=== PATIENT | male | born 1990 | race Two or more races ===

== ENCOUNTER 2017-05-11 21:48 | Emergency (ER) | payer OTHER ==
[~2017-05-11] VITALS: Ht 175.3 cm; Wt 72.6 kg
--- NOTE | 2017-05-11 21:55 | NUR ---
BIB FAMILY C/O ABD PAIN AND N/V SINCE 1AM THIS MORNING. PT STATES 15 EPISODES OF VOMITTING DARK IN COLOR "ALMOST LIKE COFFEE". RESP EVEN AND NONE LABORED. VSS. NO S/S OF ACUTE DISTRESS NOTED. PT GOWNED AND ON MONITOR WITH POX. SKIN PINK AND WARM. AAOX4. AWAITING MD KEANE.
[2017-05-11 22:53] LABS: APPEARANCE,URINE CLEAR (CLEAR); BILIRUBIN,URINE 1+ (NEGATIVE); BLOOD, URINE NEGATIVE Ery/uL (NEGATIVE); COLOR,URINE YELLOW (YELLOW); KETONES,URINE 3+ (NEGATIVE); LEUKOCYTE ESTERASE ,URINE NEGATIVE (NEGATIVE); NITRITE, URINE NEGATIVE (NEGATIVE); PROTEIN,URINE 1+ mg/dl (NEGATIVE); UGLUCOSE NEGATIVE (NEGATIVE); UROBILINOGEN,URINE 0.2 EU/dL (0.2)
[2017-05-11 22:58] LABS: BACTERIA,URINE None seen /HPF (None Seen); RBC,URINE NONE SEEN /HPF (0-2); SQUAMOUS EPITHELIAL CELL,UR Few /HPF (None Seen); WBC,URINE 0-2 /HPF (0-3)
[2017-05-11] MEDS ORDERED: IV NS 0.9% 1,000 ML BAG IV ONE (23:00)
[2017-05-11] MEDS ORDERED: ONDANSETRON HCL/PF 4 MG/2 ML VIAL IVP ONE (23:00)
[2017-05-11] MEDS ORDERED: FAMOTIDINE/PF INJ 20 MG/2 ML VIAL IV ONE ×2 (23:00→23:05)
[2017-05-11] MEDS ORDERED: ONDANSETRON HCL/PF 4 MG/2 ML VIAL ONE (23:04)
[2017-05-11 23:07] LABS: HEMATOCRIT 40 % (39-51); HEMOGLOBIN 12.8 g/dL (13.5-17.5); LYMPHOCYTES # (AUTO) 0.4 /CMM (0.8-4.8); LYMPHOCYTES % (AUTO) 3.9 % (20.0-44.0); MEAN CORPUSCULAR HEMOGLOBIN 19 PG (26.0-33.0); MEAN CORPUSCULAR HGB CONC 32 g/dl (31.0-36.0); MEAN CORPUSCULAR VOLUME 60 fL (80-96); MONOCYTES # (AUTO) 0.5 /CMM (0.1-1.30); MONOCYTES % (AUTO) 5.2 % (2.0-12.0); NEUTROPHILS # (AUTO) 9.2 /CMM (1.8-8.9); NEUTROPHILS % (AUTO) 90.9 % (43.0-81.0); PLATELET COUNT (AUTO) 246 /CMM (150-450); RDW COEFFICIENT OF VARIATION 16.5 (11.5-15.0); RED BLOOD CELL COUNT(AUTO) 6.66 MIL/uL (4.5-6.0); WHITE BLOOD COUNT (AUTO) 10.1 K/uL (4.3-11.0)
--- NOTE | 2017-05-11 23:15 | NUR ---
Patient is resting comfortably in bed with eyes open. VSS
[2017-05-11 23:16] LABS: CALCIUM, SERUM 9.4 mg/dL (8.5-10.1); CREATININE 1.1 mg/dL (0.6-1.3); POTASSIUM 3.8 mmol/L (3.5-5.1)
[2017-05-11 23:22] LABS: ALBUMIN 4.1 g/dL (3.4-5.0); BILIRUBIN,DIRECT 0.3 mg/dL (0.0-0.2); BILIRUBIN,TOTAL 1.6 mg/dL (0.2-1.0); TOTAL PROTEIN, SERUM 8.6 g/dL (6.4-8.2)
--- NOTE | 2017-05-11 23:30 | NUR ---
SAUSAGE TIER BEDSIDE FOR BLOOD DRAW
--- NOTE | 2017-05-12 00:53 | NUR ---
Patient is resting comfortably in bed with eyes closed. Easily aroused. VSS. FAMILY BEDSIDE
--- NOTE | 2017-05-12 01:02 | NUR ---
FITNESS TRAINER BEDSIDE
--- NOTE | 2017-05-12 02:35 | NUR ---
Patient discharged to home in stable condition. Written and verbal after care instructions given. Patient verbalizes understanding of instruction.IV removed. Catheter intact and site benign. Pressure and 4x4 applied to site. No bleeding noted. Pt ambulated with steady gait out of er. Pt was accompanied by family members.vss before discharge
[2017-05-12 02:46] VITALS: BP 112/65
[2017-05-13] MEDS ORDERED: ONDA4TAB5 PO (08:19)
[2017-05-13] MEDS ORDERED: FAMO40TA7 PO (08:19)
== END 2017-05-12 02:48 | disposition home or self-care (01) ==
LOC: ER 21:52
DX: K29.70 Gastritis, unspecified, without bleeding (principal); K80.20 Calculus of gallbladder without cholecystitis without obstruction; J45.909 Unspecified asthma, uncomplicated; F10.10 Alcohol abuse, uncomplicated; F17.200 Nicotine dependence, unspecified, uncomplicated
CPT/HCPCS: 36415; 76705-TC; 80048-TC; 80076-TC; 81000-TC; 83690-TC; 85025-TC; A4606; J2405; J3490; J7030; Z7610

== ENCOUNTER 2017-05-12 20:36 | Inpatient (IN) | payer MEDICAID, OTHER ==
[~2017-05-12] VITALS: Ht 175.3 cm; Wt 72.6 kg
--- NOTE | 2017-05-12 22:28 | NUR ---
LAB AT BEDSIDE FOR BLOOD DRAW.
[2017-05-12] MEDS ORDERED: ONDANSETRON 4 MG TAB.RAPDIS SL ONE (22:30)
[2017-05-12 23:01] LABS: BASOPHILS % (AUTO) 0.1 % (0.0-2.0); EOSINOPHILS % (AUTO) 0.6 % (0.0-6.0); HEMATOCRIT 41 % (39-51); HEMOGLOBIN 12.6 g/dL (13.5-17.5); LYMPHOCYTES # (AUTO) 0.8 /CMM (0.8-4.8); LYMPHOCYTES % (AUTO) 12.6 % (20.0-44.0); MEAN CORPUSCULAR HEMOGLOBIN 19 PG (26.0-33.0); MEAN CORPUSCULAR HGB CONC 31 g/dl (31.0-36.0); MEAN CORPUSCULAR VOLUME 61 fL (80-96); MONOCYTES # (AUTO) 0.6 /CMM (0.1-1.30); MONOCYTES % (AUTO) 8.9 % (2.0-12.0); NEUTROPHILS # (AUTO) 4.8 /CMM (1.8-8.9); NEUTROPHILS % (AUTO) 77.8 % (43.0-81.0); PLATELET COUNT (AUTO) 246 /CMM (150-450); RDW COEFFICIENT OF VARIATION 16.2 (11.5-15.0); RED BLOOD CELL COUNT(AUTO) 6.63 MIL/uL (4.5-6.0); WHITE BLOOD COUNT (AUTO) 6.2 K/uL (4.3-11.0)
[2017-05-12] MEDS ORDERED: ONDANSETRON 4 MG TAB.RAPDIS ONE (23:08)
[2017-05-12 23:12] LABS: CALCIUM, SERUM 9.8 mg/dL (8.5-10.1); CREATININE 1.1 mg/dL (0.6-1.3); POTASSIUM 4.4 mmol/L (3.5-5.1)
[2017-05-12 23:22] LABS: ALBUMIN 4.3 g/dL (3.4-5.0); BILIRUBIN,DIRECT 0.4 mg/dL (0.0-0.2); BILIRUBIN,TOTAL 2.3 mg/dL (0.2-1.0); TOTAL PROTEIN, SERUM 8.7 g/dL (6.4-8.2)
--- NOTE | 2017-05-12 23:29 | NUR ---
PT TRANSFERRED TO ER BED 3 FROM CHAIR 1
[2017-05-12] MEDS ORDERED: IV NS 0.9% 1,000 ML BAG IV ONE ×2 (23:30)
--- NOTE | 2017-05-12 23:42 | NUR ---
26 Y/O MALE PLACED IN BED 3 C/O N/V FOR THREE DAYS.
[2017-05-13 00:37] LABS: BAND % (MANUAL) 2 % (0.0-5.0); LYMPHOCYTES % (MANUAL) 15 % (16-48); MONOCYTES % (MANUAL) 8 % (0-11.0); NEUTROPHILS % (MANUAL) 75 (42-76)
[2017-05-13] MEDS ORDERED: ONDANSETRON HCL/PF 4 MG/2 ML VIAL IVP ONE (01:30)
[2017-05-13] MEDS ORDERED: MORPHINE SULFATE INJ 2 MG/ML DISP.SYRIN IV ONE (01:30)
[2017-05-13] MEDS ORDERED: MORPHINE SULFATE INJ 4 MG/ML DISP.SYRIN ONE (01:42)
[2017-05-13] MEDS ORDERED: ONDANSETRON HCL/PF 4 MG/2 ML VIAL ONE (01:42)
--- NOTE | 2017-05-13 01:43 | NUR ---
CALLED [facility] FOR A PANEL CALL
--- NOTE | 2017-05-13 01:48 | NUR ---
MD JOHN CALLED AND IS ON THE PHONE WITH JOE SHI AT THIS TIME
[2017-05-13] MEDS ORDERED: ONDANSETRON HCL/PF 4 MG/2 ML VIAL IVP PRN (02:00)
[2017-05-13] MEDS ORDERED: ACETAMINOPHEN 650 MG/SUPP.RECT RC PRN ×2 (02:00→02:45)
[2017-05-13] MEDS ORDERED: IV D5/0.45 NACL 1,000 ML IV PRN (02:00)
[2017-05-13] MEDS ORDERED: MORPHINE SULFATE INJ 2 MG/ML DISP.SYRIN IV PRN (02:00)
--- NOTE | 2017-05-13 02:00 | NUR ---
DX- SBO. PT MEDICATED FOR DISCOMFORT. NG TUBE PLACED AND ATTACHED TO LOW WALL SUCTION.
--- NOTE | 2017-05-13 02:11 | NUR ---
207-2 [facility]
--- NOTE | 2017-05-13 02:32 | NUR ---
REPOR GIVEN TO [facility]. PT READY TO BE TRANSFERRED TO MS.
[2017-05-13 02:40] VITALS: BP 129/80
[2017-05-13 03:41] VITALS: BP 129/80
--- NOTE | 2017-05-13 04:13 | NUR ---
ADMITTED THIS 26 YEARS OLD MALE FROM E.R FOR NAUSEA VOMITING FOR 3 DAYS PATIENT IS ALERT X 4 AMBULATORY SELF CARE NG- TUBE ON LOW WALL SUCTION PATIENT TOLERATED WELL NO DRAINAGE AT THIS TIME PATIENT DENIES ANY PAIN OR DISCOMFORT AT THIS TIME VITAL SIGN STABLE ON ROOM AIR BREATHING EVEN UNLABORED WILL CONTINUES TO MONITOR THE PATIENT FOR SAFETY AND FALL.
--- NOTE | 2017-05-13 07:30 | NUR ---
MS/RN Patient received Patient received from production supervisor off shift. A/O X4, NGT to LIS, no output at this time. IV fluids infusing at 90ml/hr via right AC, no signs of infiltration seen. Bed in low setting, side rails X2 in upright position, call light within reach, patient aware of how to call for help and operate bed. Will continue to monitor and ensure safety.
[2017-05-13] MEDS: ONDANSETRON HCL/PF 4 MG/2 ML VIAL IVP PRN ×4 (07:56→21:22)
[2017-05-13] MEDS: HYDROMORPHONE INJ 0.5 MG/0.5 ML SYRINGE IV PRN ×2 (07:57→16:10)
[2017-05-13 08:00] VITALS: BP 138/86
--- NOTE | 2017-05-13 08:00 | NUR ---
MS/RN Pain Complaining of abdominal pain 8/10 and nausea. Dilaudid and zofran administered as ordered, will monitor effectiveness.
[2017-05-13] MEDS ORDERED: FAMO40TA7 PO (08:19)
[2017-05-13] MEDS ORDERED: ONDA4TAB5 PO (08:19)
[2017-05-13] MEDS: FAMOTIDINE/PF INJ 20 MG/2 ML VIAL IV SCH ×2 (08:34→21:22)
[2017-05-13] MEDS ORDERED: FAMOTIDINE/PF INJ 20 MG/2 ML VIAL IV SCH (09:00)
--- NOTE | 2017-05-13 09:00 | NUR ---
MS/installer interior assemblies Pepcid administered as ordered, with good effect.
--- NOTE | 2017-05-13 09:20 | NUR ---
MS/licensed psychologist director Call received from radiology, patient has order from ER for upper GI series with gastrografin to rule out obstruction. Per tech, order was entered incorrectly, should of been for SBFT. Order changed.
--- NOTE | 2017-05-13 10:00 | NUR ---
MS/RN SBFT Patient taken to radiology for SBFT.
[2017-05-13] MEDS ORDERED: DIATR MEGLU/DIATRIZOATE SODIUM 120 ML BOTTLE (GASTROGRAPHIN) ONE (10:02)
--- NOTE | 2017-05-13 12:19 | NUR ---
MS/president and chief executive officer change Patient back from radiology following first part of SBFT test. Vomited X1, Walter Gamal informed. Zofran changed to 4mg every 4 hours prn.
[2017-05-13 16:00] VITALS: BP 134/80
--- NOTE | 2017-05-13 16:00 | NUR ---
MS/RN Medications Dilaudid and zofran administered per patient request for pain scal 7/10 and nausea. Will monitor effectiveness.
--- NOTE | 2017-05-13 18:33 | NUR ---
MS/RN End note Films taken at 1800 as part of small bowel follow through, per tech, patient needs to remain NPO and NGT should not be reconnected to suction unless for emergency situation. Contrast is taking longer than usual to reach small bowel and complete study. New family members at bedside and requesting to speak with Dr Grant. Dr Grant's office called and informed, Walter Yeung also made aware. Stated that he had also placed a call to Dr Grant via his cell phone and was also awaiting call back. Patient and family aware that Dr Grant was possibly not going to come in this evening unless final results of SBFT were available. Will endorse to steward/stewardess night to follow up Dr Bradford
--- NOTE | 2017-05-13 19:30 | NUR ---
RN NOTE; RECEIVED PT IN BED AWAKE AND ALERT. FAMILY A THE BED SIDE. BREATHING EVENLY. NO SOB. NAD . W/ ONGOING ABD PAIN AND NAUSEA. NO VOMITING AT THIS TIME. NG IN PLACE. CLAMPED. NOT CONNECTED TO THE SUCTIONING PER RADIOLOGIST ORDER. AWAITING FOR SBFT RESULT AND RADIOLOGY AND DR. JOHN'S DECISION. CALL LIGHT WITHIN REACH. WILL CONT TO MONITOR,
[2017-05-13 20:00] VITALS: BP 136/87
[2017-05-13 20:23] VITALS: BP 136/87
--- NOTE | 2017-05-13 21:22 | NUR ---
ZOFRAN GIVEN PER PT'S REQUEST FOR NAUSEA.
--- NOTE | 2017-05-13 22:00 | NUR ---
PT AND FAMILY IS REQUESTING SHOWER FOR THE PT. PLACED A CALL TO [employer] WELLNESS TRAINER AND SPOKE TO DANIEL . OBTAINED AN ORDER FOR OK TO SHOWER.
--- NOTE | 2017-05-14 | NUR ---
RADIOLOGY TECHS AT THE BED SIDE FOR KUB.
[2017-05-14] MEDS: ONDANSETRON HCL/PF 4 MG/2 ML VIAL IVP PRN ×2 (02:15→13:11)
[2017-05-14] MEDS: HYDROMORPHONE INJ 0.5 MG/0.5 ML SYRINGE IV PRN ×2 (02:15→09:09)
--- NOTE | 2017-05-14 02:15 | NUR ---
ZOFRAN AND DILAUDID GIVEN ORDERED PER PT'S REQUEST FOR C/O NAUSEA AND SEVERE ABD. PAIN. WILL CONT TO MONITOR ,
--- NOTE | 2017-05-14 04:17 | NUR ---
NEW IV LINE INSERTED ON L HAND. 22G. GOOD BLOOD RETURN
[2017-05-14] MEDS: IV D5/0.45 NACL 1,000 ML IV PRN ×2 (05:59→11:07)
--- NOTE | 2017-05-14 06:14 | NUR ---
[facility] AT THE BED SIDE FOR KUB. PT IN STABLE CONDITION.
--- NOTE | 2017-05-14 06:33 | NUR ---
PT IN BED DOZING INTERMITTENTLY. REMAINED STABLE. PAIN TOLERATED WELL. NO C/O N/V AT THIS TIME. KUB DONE. AWAITING FOR THE RESULTS. NPO W/ ONGOING IVF . NEEDS ATTENDED .ASSISTED W/ ADLS. CALL LIGHT WITHIN REACH. WILL CONT TO MONITOR AND WILL ENDORSE TO AM SHIFT FOR ANABELL.
[2017-05-14 08:00] VITALS: BP 140/88
[2017-05-14 09:02] LABS: BASOPHILS % (AUTO) 0.1 % (0.0-2.0); EOSINOPHILS % (AUTO) 0.8 % (0.0-6.0); HEMATOCRIT 36 % (39-51); HEMOGLOBIN 11.5 g/dL (13.5-17.5); LYMPHOCYTES # (AUTO) 0.9 /CMM (0.8-4.8); LYMPHOCYTES % (AUTO) 13.4 % (20.0-44.0); MEAN CORPUSCULAR HEMOGLOBIN 19 PG (26.0-33.0); MEAN CORPUSCULAR HGB CONC 32 g/dl (31.0-36.0); MEAN CORPUSCULAR VOLUME 60 fL (80-96); MONOCYTES # (AUTO) 1.3 /CMM (0.1-1.30); MONOCYTES % (AUTO) 20.7 % (2.0-12.0); NEUTROPHILS # (AUTO) 4.2 /CMM (1.8-8.9); PLATELET COUNT (AUTO) 245 /CMM (150-450); RDW COEFFICIENT OF VARIATION 15.8 (11.5-15.0); RED BLOOD CELL COUNT(AUTO) 5.97 MIL/uL (4.5-6.0); WHITE BLOOD COUNT (AUTO) 6.4 K/uL (4.3-11.0)
[2017-05-14] MEDS: FAMOTIDINE/PF INJ 20 MG/2 ML VIAL IV SCH ×2 (09:08→21:40)
[2017-05-14 09:21] LABS: BAND % (MANUAL) 3 % (0.0-5.0); LYMPHOCYTES % (MANUAL) 19 % (16-48); MONOCYTES % (MANUAL) 17 % (0-11.0); NEUTROPHILS % (MANUAL) 61 (42-76)
[2017-05-14 09:49] LABS: ALBUMIN 3.5 g/dL (3.4-5.0); BILIRUBIN,DIRECT 0.4 mg/dL (0.0-0.2); BILIRUBIN,TOTAL 2.3 mg/dL (0.2-1.0); CALCIUM, SERUM 8.8 mg/dL (8.5-10.1); CREATININE 0.9 mg/dL (0.6-1.3); POTASSIUM 3.4 mmol/L (3.5-5.1); TOTAL PROTEIN, SERUM 7.3 g/dL (6.4-8.2)
--- NOTE | 2017-05-14 10:55 | NUR ---
MS RN NOTES DR. JOHN CALLED IN REGARDS TO CONSULTATION. PER DR. JOHN, HE WILL COME IN AROUND 2PM TODAY TO SEE THE PT AND HE ALSO GAVE A VERBAL ORDER FOR STAT SMALL BOWEL FOLLOW THROUGH AND STAT KUB. WILL INPUT ORDERS. DR. FUENTES MADE AWARE OF THIS WELL.
[2017-05-14] MEDS ORDERED: POTASSIUM CHLORIDE 10 MEQ/50 ML PREMIXED IVPB FOR PERIPHERAL LINE IV ONE (11:30)
[2017-05-14] MEDS: POTASSIUM CL. PREMIX PERIPHER. 50 ML IV SCH ×4 (13:00→15:00)
--- NOTE | 2017-05-14 14:31 | NUR ---
MS RN NOTES PT TAKEN TO OR IN STABLE CONDITION.
[2017-05-14 14:41] LABS: INR 1.03 (0.87-1.13)
[2017-05-14] MEDS ORDERED: BUPIVACAINE 0.5 % PF 150 MG/30 ML VIAL ONE (14:47)
[2017-05-14] MEDS ORDERED: ENOXAPARIN SODIUM 40 MG/0.4 ML DISP.SYRIN SQ SCH (15:00)
[2017-05-14] MEDS ORDERED: FENTANYL PF 100MCG/2ML AMPUL ONE (15:19)
[2017-05-14] MEDS ORDERED: ROCURONIUM BROMIDE 50 MG/5 ML ONE (15:19)
[2017-05-14] MEDS ORDERED: SUCCINYLCHOLINE CHLORIDE 20 MG/ML VIAL ONE (15:19)
[2017-05-14] MEDS ORDERED: ETOMIDATE 2 MG/ML VIAL ONE (15:45)
[2017-05-14] MEDS ORDERED: METRONIDAZOLE 500MG/ NS 100ML 100 ML IV ONE (15:59)
[2017-05-14 16:30] VITALS: BP 124/78
[2017-05-14] MEDS ORDERED: ANESTHESIA TRAY IN PYXIS 1 EA TRAY MC ONE (16:37)
--- NOTE | 2017-05-14 18:05 | NUR ---
SPOKE WITH DR WILSON REGARDING THE 3 BAGS OF POTASSIUM THAT DIDN'T GET ADMINISTERED DUE TO PATIENT RUSHING TO AN EMERGENCY SURGERY AND NEW FLUID WITH [address] WILSON, DO NOT ADMINISTER THE 3 BAGS
--- NOTE | 2017-05-14 19:30 | NUR ---
MS JENNI OPENING NOTES RECEIVED PT FROM ER NURSE IN STABLE CONDITION. PT IS A/O X3. HE DENIES PAIN AT THIS TIME. NG TUBE NOTED NOT CONNECTED TO SUCTION AT THIS TIME. NPO STATUS MAINTAINED. PT DENIES ANY N/V. IV NOTED TO BE PATENT AND INTACT. NO REDNESS OR SIGNS OF INFILTRATION NOTED. PT AWAITING TO BE CONSULTED BY DR. JOHN. SAFETY MEASURES REMAIN IN PLACE. WILL CONTINUE TO MONITOR. Addendum: 05/14/17 at 1938 by TOMEKA PEREZ RN NOTE INTENDED FOR 0740
--- NOTE | 2017-05-14 19:34 | NUR ---
MS RN CLOSING NOTES PT REMAINS IN STABLE CONDITION AFTER OR PROCEDURES. ORDERS NOTED BY MD. HE CONTINUE TO DENY ANY PAIN AT THIS TIME. NG TUBE CONNECTED TO LOW INTERMITTENT SUCTION. GASTRIC CONTENTS NOTED TO BE DRAINING. VITAL SIGNS REMAIN STABLE. ALL NEEDS MET DURING SHIFT AND ORDERS CARRIED OUT ACCORDINGLY. ALL DUE MEDS GIVEN. WILL ENDORSE TO NIGHTSHIFT NURSE FOR ANABELL
[2017-05-14 20:00] VITALS: BP 116/71
--- NOTE | 2017-05-14 20:00 | NUR ---
RN INITIAL NOTES: RECEIVED REPORT FROM AFSATU RN, PT IS A/O X4, RESPIRATION EVEN AND UNLABORED, ON RA, PT DENIES ANY PAIN OR DISCOMFORT AT THIS TIME, NGTUBE TO LEFT NARE CONNECTED TO LOW INTERMITTENT SUCTION, WITH GREENISH COLORED DRAINAGE. S/P LAPAROSCOPIC SMALL BOWEL RESECTION 05/14/[address] JOHN[address] ABDOMEN SOFT TO TOUCH WITH HYPOACTIVE BOWEL SOUND NOTED, PT DENIES ANY PAIN UPON PALPATION OF THE ABDOMEN. ASSESSING PLACEMENT OF NGTUBE BY INJECTING AIR AND AUSCULTATION, FLUSHED TUBE WITH 30CC OF WATER WITH EASE AND NO RESISTANCE NOTED. LEFT HAND IV ACCESS PATENT AND FLUSHING WELL. RIGHT AC IV ACCESS REMOVED IT WAS OUT AND APPLIED PRESSURED DRESSING. SAFETY PRECAUTIONS FOR FALL INITIATED CALL LIGHT IN REACH WILL CONTINUE TO MONITOR
[2017-05-14] MEDS: IV D5/0.45 NACL W/20 MEQ KCL 1L IV PRN ×2 (20:42)
[2017-05-14] MEDS: CEFAZOLIN SODIUM 1 GM in IV SODIUM CHLORIDE 0.9% 50 ML IV SCH (20:43)
[2017-05-14] MEDS: METRONIDAZOLE 500MG/ NS 100ML 500 MG in PREMIX 1 EA IV SCH (21:40)
--- NOTE | 2017-05-14 23:00 | NUR ---
RN NOTES: ASSISTED PT TO THE RESTROOM, DISCONNECTED PT TO NGTUBE, AFTER USING THE RESTROOM, AND CONNECTED BACK TO THE TUBE, NOTED THAT SOME GREENISH DRAINAGE ONLY STUCK IN THE NG-TUBING AND DOESNT FLOW DIRECTLY TO THE SUCTION TUBING CONNECTED TO THE WALL, TRIED TROUBLE SHOOTING SUCH CHANGING THE SUCTION CONTAINER, CHANGING/USING DIFFERENT SUCTION OUTLET, INJECTING 60CC OF AIR TO CHECK FOR PLACEMENT, GURGLING SOUND HEARD, AUSCULTATION PERFORMED, FLUSHING TUBE WITH 30CC OF WATER PERFORMED AND FLUSHED WITH EASE AND NO RESISTANCE NOTED, CALLING RT TO HEP FIX THE SUCTION OUTLET. RT CAME, BUT PROBLEM WASNT FIX, IT'S SUCTIONING, HOWEVER DRAINAGE JUST STAY WITHIN THE NG-TUBING. PT DENIES ANY PAIN OR DISCOMFORT, HE ALSO DENIES ANY DIZZINESS OR NAUSEA OR VOMITING. WILL CALL TERRAZZO FINISHER GELY CINTRON
--- NOTE | 2017-05-14 23:40 | NUR ---
RN NOTES: TALKED TO DR TREVIZO , RELAYED ABOUT WHAT HAPPENED, PER MD TO OBSERVE FOR NOW, HE EXPLAINED THAT WHEN THE PT GET UP AND WALKED TO THE BATHROOM THEN WENT BACK TO BED, THERE'S A TENDENCY THAT THERE'S NO MORE TO SUCTION, AND IF THE NGTUBE WAS CLOGGED OR NOT IN PLACE, PT WILL FEEL DISCOMFORT SUCH NAUSEA OR VOMITING, AND IF THAT HAPPENS THEN WILL PUT A NEW NGTUBE , BUT FOR THE MEAN TIME HE STATED TO KEEP MONITORING, AND OKAY FOR CHEST XRAY IF NEEDED
--- NOTE | 2017-05-15 01:00 | NUR ---
RN NOTES: NOTED PT'S NGTUBE TO LOW INTERMITTENT SUCTION NOW HAVE DRAINAGE, GREENISH DRAINAGE IN THE COLLECTION CHAMBER. PT CURRENTLY ASLEEP
[2017-05-15] MEDS: CEFAZOLIN SODIUM 1 GM in IV SODIUM CHLORIDE 0.9% 50 ML IV SCH ×2 (04:22→14:26)
[2017-05-15] MEDS: METRONIDAZOLE 500MG/ NS 100ML 500 MG in PREMIX 1 EA IV SCH ×2 (05:05→13:07)
[2017-05-15] MEDS: IV D5/0.45 NACL W/20 MEQ KCL 1L IV PRN ×2 (05:06)
--- NOTE | 2017-05-15 06:58 | NUR ---
rn closing notes: pt in bed, denies any pain or discomfort throughout the shift. pt still connected to ngtube to low intermittent suction, current chamber has greenish to brownish drainage about 100ml. pt denies any nausea or vomiting. laparoscopic incision with dressing remains c/d/i, dressing remains with dry old blood. pt voided freely via urinal. left hand iv access remains patent and flushing well, infusing with ns + 20meq kcl at 150ml/hr. pt still not passing gas.abdomen soft and non tender. no abdominal distention noted. hypoactive bowel sound noted. vs remains stable, needs attended. remains npo, for kub today in am. safety precautions for fall remains engaged, call light in reach. Will endorse to day rn for ander.
--- NOTE | 2017-05-15 07:34 | NUR ---
MS RN OPENING NOTES PATIENT RECEIVED ASLEEP IN BED, AWAKENS EASILY. ALERT, ORIENTED X4 AND VERBALLY RESPONSIVE, DENIES PAIN OR DISCOMFORTS AT THIS TIME. ON ROOM AIR, BREATHING EVEN AND UNLABORED. MAINTAIN ON NPO, KUB WILL BE DONE TODAY. NG-TUBE ON LEFT NARE IN PLACE AND INTERMITTENTLY DRAINING BROWNISH BLACK COLORED DRAINAGE TO COLLECTING CANISTER. IV ACCESS ON LEFT HAND G#22 INFUSING NS + 20MEQ KCL @ 150ML/HR, NO SIGNS OF INFILTRATIONS NOTED. BED IN LOW/LOCKED POSITION, SIDE RAILS UP X2 AND CALL LIGHT WITHIN REACH. WILL CONTINUE TO MONITOR.
[2017-05-15 07:54] LABS: BASOPHILS % (AUTO) 0.2 % (0.0-2.0); EOSINOPHILS # (AUTO) 0.1 /CMM (0.0-0.7); EOSINOPHILS % (AUTO) 2.1 % (0.0-6.0); HEMATOCRIT 30 % (39-51); HEMOGLOBIN 9.7 g/dL (13.5-17.5); LYMPHOCYTES # (AUTO) 1.4 /CMM (0.8-4.8); LYMPHOCYTES % (AUTO) 22.6 % (20.0-44.0); MEAN CORPUSCULAR HEMOGLOBIN 20 PG (26.0-33.0); MEAN CORPUSCULAR HGB CONC 32 g/dl (31.0-36.0); MEAN CORPUSCULAR VOLUME 61 fL (80-96); MONOCYTES % (AUTO) 16.4 % (2.0-12.0); NEUTROPHILS # (AUTO) 3.6 /CMM (1.8-8.9); NEUTROPHILS % (AUTO) 58.7 % (43.0-81.0); PLATELET COUNT (AUTO) 200 /CMM (150-450); RDW COEFFICIENT OF VARIATION 15.8 (11.5-15.0); RED BLOOD CELL COUNT(AUTO) 4.97 MIL/uL (4.5-6.0); WHITE BLOOD COUNT (AUTO) 6.2 K/uL (4.3-11.0)
[2017-05-15 08:00] VITALS: BP 120/77
[2017-05-15 08:14] LABS: CALCIUM, SERUM 7.9 mg/dL (8.5-10.1); POTASSIUM 3.3 mmol/L (3.5-5.1)
[2017-05-15] MEDS: FAMOTIDINE/PF INJ 20 MG/2 ML VIAL IV SCH ×2 (09:09→20:07)
[2017-05-15 09:16] LABS: BAND % (MANUAL) 3 % (0.0-5.0); EOSINOPHILS % (MANUAL) 1 % (0-4); LYMPHOCYTES % (MANUAL) 27 % (16-48); MONOCYTES % (MANUAL) 11 % (0-11.0); NEUTROPHILS % (MANUAL) 58 (42-76)
[2017-05-15] MEDS: POTASSIUM CL. PREMIX PERIPHER. 50 ML IV SCH ×3 (10:00→11:36)
--- NOTE | 2017-05-15 11:20 | NUR ---
RN NOTES PT IS PASSING GAS AND WENT TO TOILET AND HAD BOWEL MOVEMENT X1. INFORMED DR WILSON WITH ORDER TO CALL DR JOHN ABOUT PT'S HAVING BOWEL MOVEMENT. CALLED DR JOHN WITH ORDER TO TO REMOVE NGTUBE AND START PT ON CLEAR LIQUID DIET. WILL CONTINUE TO MONITOR.
--- NOTE | 2017-05-15 11:38 | NUR ---
RN NOTES PATIENT WITH LOW LEVEL OF K 3.3, DR WILSON ON UNIT WITH ORDER TO CHANGED D5 1/2 NS +20MEQ KCL @ 150ML/HR TO 40 MEQ MCL @ 150ML/HR. WILL CONTINUE TO MONITOR
[2017-05-15] MEDS: Potassium Chloride 40 MEQ in IV D5/0.45 NACL 1,000 ML IV PRN ×2 (12:44→23:49)
[2017-05-15] MEDS: ENOXAPARIN SODIUM 40 MG/0.4 ML DISP.SYRIN SQ SCH (15:41)
[2017-05-15 16:00] VITALS: BP 115/73
--- NOTE | 2017-05-15 18:52 | NUR ---
MS RN CLOSING NOTES PATIENT AWAKE AND RESTING IN BED WITH FAMILY AT BEDSIDE. A/O X4, SAME ABLE TO MAKE NEEDS KNOWN. ALL NEEDS AND CARE PROVIDED WELL. ON ROOM AIR, BREATHING EVEN AND UNLABORED. IV ACCESS ON LEFT HAND G#22 INFUSING NS + 40MEQ KCL @ 150ML/HR, NO SIGNS OF INFILTRATIONS NOTED. KEPT HOB ELEVATED. BED IN LOW/LOCKED POSITION WITH SIDE RAILS UP X2. CALL LIGHT AND BEDSIDE TABLE PLACED WITHIN EASY REACH OF PT. ALL SAFETY MEASURES MAINTAINED. WILL ENDORSED TO YARN HANDLER NURSE FOR ANABELL..
--- NOTE | 2017-05-15 19:30 | NUR ---
RN NOTES RECEIVED PATIENT IN BED AWAKE, OA X 3, ABLE TO MAKE NEEDS KNOWN. NO ACUTE DISTRESS NOTED. DENIES ANY PAIN AT THIS TIME. IV SITE PATENT, INTACT; IVF INFUSING ORDERED. ABDOMINAL INCISION DRESSING INTACT; BOWEL SOUNDS PRESENT. SAFETY REMINDERS GIVEN. ON LOW BED WITH BILATERAL UPPER SIDE RAILS UP. CALL VILLALBA WITHIN EASY REACH. WILL CONTINUE TO MONITOR.
[2017-05-15 20:00] VITALS: BP 113/72
--- NOTE | 2017-05-16 01:10 | NUR ---
RN NOTES NOTED AND CARRIED OUT NEW ORDER FROM DR. TREVIZO FOR CMP IN AM.
--- NOTE | 2017-05-16 06:30 | NUR ---
RN NOTES PATIENT ASLEEP, EASILY AROUSABLE. RESPIRATIONS EVEN. NO SIGNS OF PAIN AT THIS TIME. DUE MEDS GIVEN WITH NO ASE NOTED. NEEDS ATTENDED. SAFETY PRECAUTIONS AND COMFORT MEASURES IN PLACE. WILL GIVE REPORT TO DAY SHIFT FOR CONTINUITY OF CARE.
[2017-05-16 07:00] LABS: BILIRUBIN,TOTAL 1.4 mg/dL (0.2-1.0); CALCIUM, SERUM 8.5 mg/dL (8.5-10.1); POTASSIUM 4.1 mmol/L (3.5-5.1); TOTAL PROTEIN, SERUM 6.5 g/dL (6.4-8.2)
[2017-05-16] MEDS: Potassium Chloride 40 MEQ in IV D5/0.45 NACL 1,000 ML IV PRN (07:12)
--- NOTE | 2017-05-16 07:26 | NUR ---
MS RN OPENING NOTES PATIENT RECEIVED AWAKE IN BED IN NO ACUTE SIGNS OF DISTRESS. HOB ELEVATED. A/O X4. VERBALLY RESPONSIVE, DENIES PAIN OR DISCOMFORTS AT THIS TIME. ON ROOM AIR, BREATHING EVEN AND UNLABORED. PT NOTED WITH BLOOD SHOT ON LEFT INNER SIDE OF THE EYE WITH NO C/O PAIN OR BLURRY VISION. IV ACCESS ON LEFT HAND G#22 INFUSING NS + 40MEQ KCL @ 150ML/HR, NO SIGNS OF INFILTRATIONS NOTED. BED IN LOW/LOCKED POSITION, SIDE RAILS UP X2 AND CALL LIGHT WITHIN REACH. WILL CONTINUE TO MONITOR.
[2017-05-16 08:00] VITALS: BP 108/73
[2017-05-16] MEDS: FAMOTIDINE/PF INJ 20 MG/2 ML VIAL IV SCH ×2 (08:25→20:32)
--- NOTE | 2017-05-16 11:26 | NUR ---
RN NOTES PT SEEN AND EVALUATED BY DR JOHN WITH ORDER TO START PT ON REGULAR DIET TOLERATED, SAME CLEARED FOR DISCHARGED. WILL CONTINUE TO MONITOR.
[2017-05-16 16:00] VITALS: BP 116/76
--- NOTE | 2017-05-16 18:45 | NUR ---
MS RN CLOSING NOTES PATIENT AWAKE AND RESTING AT MODERATE HIGH BACKREST IN BED AT THIS TIME WITH FAMILY @ BEDSIDE. A/O X4. ABLE TO COMMUNICATE VERBALLY. PT TOLERATED REGULAR DIET TODAY WITH NO C/O ABDOMINAL PAIN, N & V. ON ROOM AIR, BREATHING EVEN AND UNLABORED. IV ACCESS ON LEFT HAND G#22 INFUSING D 5 1/2 NS + 40MEQ KCL @ 150ML/HR, NO SIGNS OF INFILTRATIONS NOTED. KEPT BED IN LOW/LOCKED POSITION WITH SIDE RAILS UP X2. CALL LIGHT AND BEDSIDE TABLE PLACED WITHIN EASY REACH OF PT. ALL NEEDS AND CARE ATTENDED WELL. WILL ENDORSED TO MULTI NEEDLE MACHINE OPERATOR NURSE FOR ANABELL..
--- NOTE | 2017-05-16 19:30 | NUR ---
RN NOTES RECEIVED PATIENT IN BED AWAKE, AO X 3, ABLE TO MAKE NEEDS KNOWN. NO ACUTE DISTRESS NOTED. DENIES ANY PAIN AT THIS TIME. IV SITE PATENT, INTACT; IVF INFUSING ORDERED. ABDOMINAL INCISION DRESSING INTACT; BOWEL SOUNDS PRESENT. SAFETY REMINDERS GIVEN. ON LOW BED WITH BILATERAL UPPER SIDE RAILS UP. CALL VILLALBA WITHIN EASY REACH. WILL CONTINUE TO MONITOR.
[2017-05-16 20:00] VITALS: BP 104/67
[2017-05-16] MEDS: ENOXAPARIN SODIUM 40 MG/0.4 ML DISP.SYRIN SQ SCH (20:33)
--- NOTE | 2017-05-17 07:49 | NUR ---
MS/RN Patient received Patient received from film processing shift supervisor. A/O X4, vital signs stable. Abdominal incisions clean and dry. Denies pain. Call light within reach, will continue to monitor and ensure safety.
[2017-05-17 08:00] VITALS: BP 120/77
[2017-05-17] MEDS: FAMOTIDINE/PF INJ 20 MG/2 ML VIAL IV SCH (08:26)
--- NOTE | 2017-05-17 09:00 | NUR ---
MS/RN Medications Morning medications administered as ordered.
--- NOTE | 2017-05-17 10:15 | NUR ---
MS/RN S/B Dr Bae Seen by Dr Bae - patient to be discharged to home later today. Will requie prescriptions and sick note for school.
--- NOTE | 2017-05-17 13:20 | NUR ---
MS/sales representative paperwork Discharge paperwork prepared, heplock removed, awaiting final discharge order. Family at bedside, will provide transport home.
--- NOTE | 2017-05-17 15:00 | NUR ---
MS/manager card Patient discharged to home in stable condition. Paperwork signed, copy made and placed in chart. Education provided to patient, including signs and symptoms of infection ie temperature, increase in pain and swelling around incision sites. Heplock and name bands removed. All personal belongings accounted for on belongings list. Escorted to main lobby, parents providing transport home.
== END 2017-05-17 15:15 | disposition home or self-care (01) | DRG 224 ==
LOC: ER 20:38 → MEDSG2 05-13 02:43
PROVIDERS: ADMIT Internal Medicine; ATTEND Nurse Practitioner Acute Care
PROC: 0DNB0ZZ Release Ileum, Open Approach (ICD-10-PCS; principal; 2017-05-14 16:01)
DX: K56.50 Intestinal adhesions [bands], unspecified as to partial versus complete obstruction (principal); E86.0 Dehydration; D50.9 Iron deficiency anemia, unspecified; F17.200 Nicotine dependence, unspecified, uncomplicated; E87.6 Hypokalemia; E80.6 Other disorders of bilirubin metabolism; J45.909 Unspecified asthma, uncomplicated; K80.20 Calculus of gallbladder without cholecystitis without obstruction; Q43.0 Meckel's diverticulum (displaced) (hypertrophic)
CPT/HCPCS: 36415; 74018; 74250-TC; 80048-TC; 80053-TC; 80076-TC; 83690-TC; 85025-TC; 85730-TC; 86850-TC; 87081-TC; A4216; A4606; J0330; J0690; J1650; J2270; J2405; J3010; J3480; J3490; J7030; J7050; Q0162; Q9963; Z7610